=== PATIENT | female | born 1970 | race Hispanic/Latino ===

== ENCOUNTER 2019-01-19 00:29 | Emergency (ER) | payer MEDICAID, OTHER ==
[2019-01-19] MEDS ORDERED: KETOROLAC TROMETHAMINE 60 MG/2 ML VIAL ONE (01:23)
[2019-01-19] MEDS ORDERED: CYCLOBENZAPRINE HCL 10 MG TABLET ONE (01:24)
[2019-01-19] MEDS ORDERED: LIDOCAINE 5% TOPICAL PATCH TP ONE (01:24)
== END 2019-01-19 02:27 | disposition home or self-care (01) ==
LOC: EDH 00:29
DX: M62.830 Muscle spasm of back (principal); M54.6 Pain in thoracic spine; R51 Headache; E78.5 Hyperlipidemia, unspecified; E11.9 Type 2 diabetes mellitus without complications; Z79.4 Long term (current) use of insulin; Z90.49 Acquired absence of other specified parts of digestive tract; Z90.710 Acquired absence of both cervix and uterus
CPT/HCPCS: 96372; 99283; J1885

== ENCOUNTER 2024-06-21 16:08 | Emergency (ER) | payer BC ==
[~2024-06-21] VITALS: Ht 154.9 cm; Wt 77.6 kg
[2024-06-21 16:54] LABS: ADD UA MICROSCOPIC YES; APPEARANCE,URINE CLOUDY (CLEAR); BILIRUBIN,URINE NEGATIVE (NEGATIVE); COLOR,URINE YELLOW (YELLOW); GLUCOSE, URINE (UA) 30 mg/dL (NEGATIVE); KETONES,URINE NEGATIVE (NEGATIVE); LEUKOCYTE ESTERASE ,URINE 25 Leu/uL (NEGATIVE); NITRATE,URINE NEGATIVE (NEGATIVE); PH,URINE 5.5 (5.0-8.0); PROTEIN,URINE 100 mg/dL (NEGATIVE); UROBILINOGEN,URINE 0.2 mg/dL (0.2-1.0)
[2024-06-21 16:56] LABS: BACTERIA,URINE FEW /HPF (None Seen); HYALINE CASTS, URINE 26-50 /LPF (0-1 /LPF); MUCUS,URINE FEW LPF (None Seen); SQUAMOUS EPITHELIAL CELL,UR FEW /HPF (0-2)
[2024-06-21] MEDS: 0.9%NACL 1000ML 1,000 ML IV ONE (17:05)
[2024-06-21] MEDS: ondanSETRON 4MG INJ IVP ONE (17:06)
[2024-06-21 17:14] LABS: BASOPHILS # (AUTO) 0.02 K/uL (0.00-0.20); BASOPHILS % (AUTO) 0.2 % (0.0-5.0); HEMATOCRIT 37.6 % (36-48); IMMATURE GRANULOCYTE ABSOLUTE 0.21 K/uL (0-1); LYMPHOCYTES # (AUTO) 1.3 K/uL (1.0-4.8); LYMPHOCYTES % (AUTO) 15.9 % (21.0-51.0); MEAN CORPUSCULAR HEMOGLOBIN 28.6 pg (27.0-33.0); MEAN CORPUSCULAR VOLUME 86.6 fL (79-99); MONOCYTES # (AUTO) 0.5 K/uL (0.1-1.0); MONOCYTES % (AUTO) 5.5 % (3.0-13.0); NEUTROPHILS # (AUTO) 6.3 K/uL (1.8-7.7); NEUTROPHILS % (AUTO) 75.9 % (40.0-77.0); PLATELET COUNT (AUTO) 192 K/uL (130-400); RED BLOOD CELL COUNT(AUTO) 4.34 MIL/uL (4.00-5.50); RED CELL DISTRIBUTION WIDTH 12.2 % (11.0-15.5); WHITE BLOOD COUNT (AUTO) 8.3 K/uL (4.8-10.8)
[2024-06-21 17:20] LABS: CREATININE 1.9 mg/dL (0.5-1.0); POTASSIUM 4.5 mmol/L (3.5-5.1)
[2024-06-21] MEDS ORDERED: OMEP40CA21 PO (18:39)
[2024-06-21] MEDS ORDERED: ONDA-243 PO (18:39)
[2024-06-21 19:27] VITALS: BP 132/68; PULSE 81; RESP 16; TEMP 98.1; O2SAT 98
== END 2024-06-21 19:32 | disposition home or self-care (01) ==
LOC: EDH 16:08
DX: A08.4 Viral intestinal infection, unspecified (principal); E86.0 Dehydration; E11.65 Type 2 diabetes mellitus with hyperglycemia; E78.00 Pure hypercholesterolemia, unspecified; I10 Essential (primary) hypertension; J45.909 Unspecified asthma, uncomplicated; Z90.49 Acquired absence of other specified parts of digestive tract; Z90.710 Acquired absence of both cervix and uterus
CPT/HCPCS: 99284; 96374; 80048; 85025; 87086; 81001; 36415; J7030; J2405